=== PATIENT | female | born 1990 | race Caucasian/White ===

== ENCOUNTER 2024-12-10 14:08 | Outpatient (REF) | payer BC, SELFPAY ==
--- NOTE | 2024-12-10 12:45 | SKI_PTH ---
PATIENT: Mansi John LOC: [facility] U#:[id number] AGE/SX: 34/F ROOM: RE12/10/[address]: Becky Srivastava : 1990 BED: DIS: 12/10/2024 SPEC #: [id number] RECD: 12/10/24 17:28 STATUS: BEN REGhada #: [id number] EVERT: 12/10/24 12:[address]: Becky Srivastava DEPT: Surgical Specimen RECD BY: Marium Arango ENTERED: 12/10/24 17:30 SP TYPE: MERCEDES OT DR: Hernan Mistry Tissues: 1 - SKIN BIOPSY(SHAVE/PUNCH) Procedures: SKIN LEVEL 4 Comments: [id number]
== END 2024-12-10 14:09 | disposition home or self-care (01) ==
LOC: LBN 14:08
PROVIDERS: PCP Nurse Practitioner Family; Visit Provider Registered Nurse Maternal Newborn
DX: L98.0 Pyogenic granuloma (principal); J34.89 Other specified disorders of nose and nasal sinuses
CPT/HCPCS: 88305